=== PATIENT | male | born 1995 | race Caucasian/White ===

== ENCOUNTER 2024-05-31 14:53 | Outpatient (AMB) | payer SELFPAY ==
--- NOTE | 2024-05-31 15:08 | AM.OFFWIN_ITS ---
Intake Vital Signs 05/31/24 15:09 Height 6 ft 2 in Weight 248 lb BMI 31.8 BP 128/66 Blood Pressure Location Rt brachial Position Sitting Pulse 82 Pulse Source Pulse Oximeter Temp 97.5 F Temp Source Temporal Artery Scan Pulse Oximetry (%) 99 Oxygen Delivery Method Room Air Intake Visit Reasons: [employer]GRAM[employer]NALYST School clearance/paperwork Intake Note: Pt presents to the office today for paperwork to be signed off stating he did have his vaccines. Allergies No Known Allergies Allergy (Verified 05/31/24 15:12) HPI [employer]NALYST School clearance/paperwork HPI Details This note is constructed using voice recognition software. While every effort has been made to ensure accuracy, ferryboat operator errors may have been included. The patient is a 29 year old male who presents to the clinic today with school physical. Patient reports that he is signed up for the PA program at [facility] and needs clearance to be able to join the program. He reports a history of childhood asthma which he is no longer treated for and occasional use of PPIs for GERD. He otherwise denies any major concerns has no history of surgeries. He is generally healthy. He presents with a list of immunizations that he has had before, and requires titers to be done for school. He currently works for [employer], and keeps good records of his health. Review of Systems Const All systems reviewed & are unremarkable except as noted in HPI and below Physical Exam Vital Signs: Last Vital Signs Temp 97.5 F 05/31/24 15:09 Pulse 82 05/31/24 15:09 BP 128/66 05/31/24 15:09 Pulse Ox 99 05/31/24 15:09 Oxygen Delivery Method Room Air 05/31/24 15:09 BMI result Body Mass Index 31.8 Const General: cooperative, healthy appearing, comfortable, no acute distress and well developed Orientation/consciousness: patient oriented x3 Limitations: no limitations HEENT Head: Yes normal to inspection Ears: hearing grossly normal bilaterally General nose exam: Normal external nose present Face and sinus: Yes normal facial exam Eyes General: appearance normal, both eyes and all related structures Neck Neck: Yes normal visual inspection and Yes full ROM Resp Effort & Inspection: normal respiratory effort and able to speak in complete sentences Auscultation: clear to auscultation bilaterally Cardio Rate: regular rate Rhythm: regular rhythm Heart sounds: normal S1 and S2 GI Inspection: Yes normal to inspection Palpation (GI): Soft to palpation and nontender Skin General skin exam: no rashes or lesions noted Neuro General: patient oriented x3 Extrem General: Yes normal to inspection Assessment & Plan Assessment & Plan (1) School physical exam: Code(s): Z02.0 - Encounter for examination for admission to educational institution Plan: Unremarkable physical examination. Forms completed for school, all immunizat ions are up-to-date. He does require titers for hepatitis-B, varicella and tuberculosis screening. I have ordered these labs, and he will obtain them now to include results with his packet. Plan See above for full details and plan. Orders: Orders Hepatitis B Core Antibody Today Z11.1 - Encounter for screening for respiratory tuberculosis, Z11.59 - Encounter for screening for other viral diseases Varicella IgG Antibody Today Z11.1 - Encounter for screening for respiratory tuberculosis, Z11.59 - Encounter for screening for other viral diseases T Spot TB Today Z11.1 - Encounter for screening for respiratory tuberculosis, Z11.59 - Encounter for screening for other viral diseases Coding Level of Care Code Sports/Work/School Physical Diagnoses School physical exam Z02.0
[2024-05-31 15:09] VITALS: BP 128/66; PULSE 82; TEMP 36.4; O2SAT 99; BMI 31.8
== END 2024-05-31 15:45 | disposition home or self-care (01) ==
PROVIDERS: Visit Provider Registered Nurse
DX: Z02.0 Encounter for examination for admission to educational institution (principal)

== ENCOUNTER 2024-06-01 10:31 | Outpatient (REF) | payer OTHER, SELFPAY ==
[2024-06-02 04:11] LABS: HBc Num1 0.13 S/CO (0.00-0.79); Hepatitis B Core Antibody Nonreactive (Nonreactive)
[2024-06-04 08:33] LABS: TS Negative Control Passed; TS Panel A 0; TS Panel B 1; TS Positive Control Passed; TSpotTB Negative (Negative)
== END 2024-06-01 10:32 | disposition home or self-care (01) ==
LOC: HO.HMGCLDS 10:31
PROVIDERS: Visit Provider Registered Nurse
DX: Z11.1 Encounter for screening for respiratory tuberculosis (principal); Z11.59 Encounter for screening for other viral diseases
CPT/HCPCS: 36415; 86481; 86704; 86787